=== PATIENT | male | born 2000 | race Caucasian/White ===

== ENCOUNTER 2019-10-13 11:18 | Emergency (ER) | payer BC, OTHER ==
[~2019-10-13] VITALS: Ht 180.3 cm; Wt 68.2 kg
[2019-10-13] MEDS ORDERED: ISOVUE-370 76% 100ML VIAL (Q9967) As Ordered ONE (12:22)
[2019-10-13] MEDS ORDERED: ONDANSETRON 4MG/2ML VIAL (J2405) As Ordered ONE (12:25)
[2019-10-13] MEDS ORDERED: MORPHINE 2 MG/ML 1ML VIAL (J2270) As Ordered ONE (12:26)
[2019-10-13] MEDS ORDERED: ONDANSETRON 4MG/2ML VIAL (J2405) IV ONE (12:30)
[2019-10-13] MEDS ORDERED: MORPHINE 2 MG/ML 1ML VIAL (J2270) IV ONE (12:30)
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
[2019-10-13] MEDS ORDERED: KEFL500C17 PO (14:40)
[2019-10-13] MEDS ORDERED: CEPHALEXIN 500 MG CAP PO ONE (14:45)
[2019-10-13 14:47] VITALS: BP 139/65
== END 2019-10-13 14:48 | disposition home or self-care (01) ==
LOC: M ED 11:18 → EDBD 11:18 → M ED 14:48
DX: S31.119A Laceration without foreign body of abdominal wall, unspecified quadrant without penetration into peritoneal cavity, initial encounter (principal); W26.0XXA Contact with knife, initial encounter; Y92.89 Other specified places as the place of occurrence of the external cause; Y99.0 Civilian activity done for income or pay; F17.210 Nicotine dependence, cigarettes, uncomplicated
CPT/HCPCS: 12001; 72191; 80047; 96374; 96375; 99284; J2270; J2405; Q9967

== ENCOUNTER 2019-10-20 12:50 | Emergency (ER) | payer OTHER ==
[~2019-10-20] VITALS: Ht 180.3 cm; Wt 97.9 kg
[2019-10-20 12:50] VITALS: BP 144/78
[~2019-10-20 12:50] MED LIST: KEFL500C17 PO
== END 2019-10-20 13:35 | disposition home or self-care (01) ==
LOC: M ED 12:50
DX: Z48.02 Encounter for removal of sutures (principal)